=== PATIENT | male | born 1945 | race Caucasian/White ===

== ENCOUNTER → 2020-03-12 | Outpatient (CLI) | payer MEDICARE ==
[~2020-03-12] MED LIST: ACHD5005 PO
--- NOTE | 2020-03-12 16:56 | Diagnostic Imaging Report ---
INDICATION: Right knee pain. COMPARISON: None available. TECHNIQUE: Three radiographs of the right knee dated 03/12/2020. FINDINGS: No acute fracture or dislocation. No destructive osseous process. Small osseous excrescence is noted involving the posterior aspect of the distal femoral shaft laterally. This appears to be in continuity with the underlying medullary cavity. Moderate medial joint space narrowing with associated moderate osteophytosis. Minimal lateral joint space narrowing with minimal osteophytosis. No joint effusion. Minimal vascular calcifications. IMPRESSION: No acute osseous abnormality with moderate degenerative changes, greatest within the medial knee. 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 Dictated by: Dictated on workstation # [id number]
== END ==
LOC: RAD FS 13:21
PROVIDERS: ATTEND Nurse Practitioner
DX: M17.11 Unilateral primary osteoarthritis, right knee (principal)
CPT/HCPCS: 73562

== ENCOUNTER 2020-09-20 06:34 | Outpatient (CLI) | payer MEDICARE ==
[~2020-09-20] VITALS: Ht 190.5 cm; Wt 113.6 kg
[2020-09-20] MEDS ORDERED: LEVO125C4 PO (13:37)
== END 2020-09-20 13:38 | disposition home or self-care (01) ==
LOC: PREOP 06:34
PROVIDERS: ATTEND Specialist
DX: Z01.818 Encounter for other preprocedural examination (principal)

== ENCOUNTER 2020-09-28 06:16 | Day surgery (SDC) | payer MEDICARE ==
[~2020-09-28] VITALS: Ht 190.5 cm; Wt 113.6 kg
[~2020-09-28 06:16] MED LIST changes: +LEVO125C4 PO
[2020-09-28 06:30] VITALS: BP 148/92
[2020-09-28] MEDS ORDERED: LIDOCAINE PF 1% 2 ML VIAL IR PRN (06:30)
[2020-09-28] MEDS ORDERED: TIMOLOL MALEATE 0.5% 5 ML (TIMOPTIC) BTL OU PRN (06:30)
[2020-09-28] MEDS ORDERED: POVIDONE (BETADINE) OPHTH SOLN 5% 30 ML OP ONE (06:30)
[2020-09-28] MEDS ORDERED: MOXIFLOXACIN OPHTH SOLN 5 MG/ML 0.3 ML SYRINGE OP ONE (06:30)
[2020-09-28] MEDS ORDERED: MIDAZOLAM 2 MG/2 ML (VERSED) VIAL ONE (07:13)
[2020-09-28] MEDS: TETRACAINE 0.5% OPHTH SOLN 4 ML BTL (SINGLE DOSE ONLY) OU PRN ×4 (07:15→07:34)
--- NOTE | 2020-09-28 07:17 | Ophthalmologist Pre-Op Note ---
Pre-Operative Progress Note H&P Reviewed The H&P was reviewed, patient examined and no changes noted. Date H&P Reviewed: Sep 28, 2020 Time H&P Reviewed: 07:16 Pre-Op Dx Cataract, Right Eye CLAIR KANG MD Sep 28, 2020 07:17
[2020-09-28] MEDS: PHENYLEPHRINE 10% OPHTH (NEO-SYN) 5 ML BTL OU SCH ×3 (07:23→07:34)
[2020-09-28] MEDS: TROPICAMIDE 1% OPH SOLN (MYDRIACYL) 15 ML BTL OP SCH ×3 (07:23→07:34)
--- NOTE | 2020-09-28 08:38 | Ophthalmology Operative Report ---
Cataract removal/placement IOL PREOPERATIVE DIAGNOSIS: Cataract Right Eye POSTOPERATIVE DIAGNOSIS: Cataract Right Eye PROCEDURE: Cataract removal and placement of posterior chamber implant, right eye SURGEON: Logan Kang ANESTHESIA: Topical with sedation COMPLICATIONS: None ESTIMATED BLOOD LOSS: Minimal DESCRIPTION OF PROCEDURE: After proper informed consent was obtained, the patient, a 75 male, was taken to the Operating Room and the right eye was anesthetized with tetracaine. The right eye was then prepped and draped in the usual manner. A wire lid speculum was placed. A paracentesis was made at the left hand position. Preservative free lidocaine was injected into the anterior chamber followed by viscoelastic. A clear corneal incision was made in the temporal position. A capsulorrhexis was preformed and the central nuclear and cortical material were removed. The posterior capsule was polished and Rainer 17.5 AU00T0 IOL was placed into the capsular bag. The residual viscoelastic was aspirated and balanced saline solution was injected into the anterior chamber. Moxifloxacin was injected into the anterior chamber. The wound was checked and found to be water tight. The patient tolerated the procedure well without complications. LOGAN KANG MD Sep 28, 2020 08:38
[2020-09-28 08:48] VITALS: BP 160/89
--- NOTE | 2020-09-28 08:49 | Anesthesia-General Post-Op ---
MAC Post Op Complications Complications None Follow Up Care/Instructions Patient Instructions None needed. Anesthesiology Discharge Order Discharge Order Patient is doing well, no complaints, stable vital signs, no apparent adverse anesthesia problems. CLARK VASQUEZ DO Sep 28, 2020 08:49
[2020-09-28] MEDS ORDERED: acetaZOLAMIDE ER 500 MG CAP (DIAMOX SEQUELS) PO ONE (13:30)
== END 2020-09-28 08:48 | disposition home or self-care (01) ==
LOC: SDC 06:16
PROVIDERS: ATTEND Specialist
DX: H25.11 Age-related nuclear cataract, right eye (principal); I10 Essential (primary) hypertension; E03.9 Hypothyroidism, unspecified; Z79.890 Hormone replacement therapy; Z79.899 Other long term (current) drug therapy; Z80.8 Family history of malignant neoplasm of other organs or systems
CPT/HCPCS: 66984; V2632

== ENCOUNTER 2020-10-08 05:35 | Outpatient (CLI) | payer MEDICARE ==
[~2020-10-08] VITALS: Ht 190.5 cm; Wt 113.6 kg
== END 2020-10-08 12:45 | disposition home or self-care (01) ==
LOC: PREOP 05:35
PROVIDERS: ATTEND Specialist
DX: Z01.818 Encounter for other preprocedural examination (principal)

== ENCOUNTER 2020-10-12 06:07 | Day surgery (SDC) | payer MEDICARE ==
[~2020-10-12] VITALS: Ht 190.5 cm; Wt 113.6 kg
[2020-10-12] MEDS ORDERED: POVIDONE (BETADINE) OPHTH SOLN 5% 30 ML OP ONE (06:15)
[2020-10-12] MEDS ORDERED: TIMOLOL MALEATE 0.5% 5 ML (TIMOPTIC) BTL OU PRN (06:15)
[2020-10-12] MEDS ORDERED: LIDOCAINE PF 1% 2 ML VIAL IR PRN (06:15)
[2020-10-12] MEDS ORDERED: MOXIFLOXACIN OPHTH SOLN 5 MG/ML 0.3 ML SYRINGE OP ONE (06:15)
[2020-10-12] MEDS: TETRACAINE 0.5% OPHTH SOLN 4 ML BTL (SINGLE DOSE ONLY) OU PRN ×4 (06:22→06:42)
[2020-10-12] MEDS: PHENYLEPHRINE 10% OPHTH (NEO-SYN) 5 ML BTL OU SCH ×3 (06:29→06:42)
[2020-10-12] MEDS: TROPICAMIDE 1% OPH SOLN (MYDRIACYL) 15 ML BTL OP SCH ×3 (06:30→06:42)
[2020-10-12 06:33] VITALS: BP 163/92
[2020-10-12] MEDS ORDERED: MIDAZOLAM 2 MG/2 ML (VERSED) VIAL ONE (07:20)
--- NOTE | 2020-10-12 07:25 | Ophthalmologist Pre-Op Note ---
Pre-Operative Progress Note H&P Reviewed The H&P was reviewed, patient examined and no changes noted. Date H&P Reviewed: Oct 12, 2020 Time H&P Reviewed: 07:25 Pre-Op Dx Cataract, Left Eye CLAIR KANG MD Oct 12, 2020 07:25
[2020-10-12] MEDS ORDERED: acetaZOLAMIDE ER 500 MG CAP (DIAMOX SEQUELS) PO ONE (07:30)
--- NOTE | 2020-10-12 07:42 | Ophthalmology Operative Report ---
Cataract removal/placement IOL PREOPERATIVE DIAGNOSIS: Cataract Left Eye POSTOPERATIVE DIAGNOSIS: Cataract Left Eye PROCEDURE: Cataract removal and placement of posterior chamber implant, left eye SURGEON: Logan Kang ANESTHESIA: Topical with sedation COMPLICATIONS: None ESTIMATED BLOOD LOSS: Minimal DESCRIPTION OF PROCEDURE: After proper informed consent was obtained, the patient, a 75 male, was taken to the Operating Room and the left eye was anesthetized with tetracaine. The left eye was then prepped and draped in the usual manner. A wire lid speculum was placed. A paracentesis was made at the left hand position. Preservative free lidocaine was injected into the anterior chamber followed by viscoelastic. A clear corneal incision was made in the temporal position. A capsulorrhexis was preformed and the central nuclear and cortical material were removed. The posterior capsule was polished and an Rainer 18.5 AU00T0 was placed into the capsular bag. The residual viscoelastic was aspirated and balanced saline solution was injected into the anterior chamber. Moxifloxacin was injected into the anterior chamber. The wound was checked and found to be water tight. The patient tolerated the procedure well without complications. LOGAN KANG MD Oct 12, 2020 07:42
[2020-10-12 07:55] VITALS: BP 147/85
--- NOTE | 2020-10-12 12:50 | Anesthesia-General Post-Op ---
MAC Patient Condition Mental Status/LOC: Same as Preop Cardiovascular: Satisfactory Nausea/Vomiting: Absent Respiratory: Satisfactory Pain: Controlled Complications: Absent Post Op Complications Complications None Follow Up Care/Instructions Patient Instructions None needed. Anesthesiology Discharge Order Discharge Order Patient is doing well, no complaints, stable vital signs, no apparent adverse anesthesia problems. No complications reported per nursing. ERIS SANCHEZ CRNA Oct 12, 2020 12:50
== END 2020-10-12 07:55 | disposition home or self-care (01) ==
LOC: SDC 06:07
PROVIDERS: ATTEND Specialist
DX: H25.12 Age-related nuclear cataract, left eye (principal); E03.9 Hypothyroidism, unspecified; Z79.890 Hormone replacement therapy; Z79.899 Other long term (current) drug therapy; Z85.828 Personal history of other malignant neoplasm of skin; Z80.8 Family history of malignant neoplasm of other organs or systems
CPT/HCPCS: 66984; V2632